=== PATIENT | male | born 1990 | race Caucasian/White ===

== ENCOUNTER 2017-01-04 19:09 | Emergency (ER) | payer OTHER ==
[~2017-01-04] VITALS: Ht 172.7 cm; Wt 60.6 kg
[~2017-01-04 19:09] MED LIST: AUGMENTIN875 MG PO; CIPRODEX OTIC7.5 ML RIGHT EAR; HYQVIA SC; IBUPROFEN800 MG PO; IMODIUM A-D2 M1 PO; LEVAQUIN750 MG PO; NOHOMEMEDS; PEPTO BISMOL240 ML PO; PERCOCET 5/31 TABLET PO; XANAX0.5 MG PO
[2017-01-04 22:16] LABS: BASOPHIL COUNT 0.1 K/uL (0-0.1); EOSINOPHIL (%) 0.1 % (0-5); HEMATOCRIT 42.1 % (38.0-50.0); IMMATURE GRANULOCYTE (%) 0.3 % (0.0-0.7); IMMATURE GRANULOCYTE COUNT 0.6 K/uL; LYMPHOCYTE COUNT 2.3 K/uL (1.0-2.8); MCH 26.3 PG (29.0-34.0); MCHC 34.7 G/DL (30.0-36.0); MCV 75.7 FL (86-99); MEAN PLAT.VOLUME 9.9 uM^3 (9.0-12.4); MONOCYTE (%) 6.5 % (3-12); MONOCYTE COUNT 1.3 K/uL (0-0.8); PLATELET COUNT 289 K/uL (156-360); RBC DIS.WIDTH-CV 13.5 % (11.8-14.6); RED BLOOD COUNT 5.56 M/uL (4.00-5.50); WHITE BLOOD COUNT 19.7 K/uL (4.1-10.2)
[2017-01-04 22:27] LABS: CHLORIDE 103 mEq/L (99-109); POTASSIUM 3.9 mEq/L (3.7-5.4); SODIUM 139 mEq/L (136-147)
[2017-01-04 22:30] LABS: GLUCOSE 108 mg/dL (70-99)
[2017-01-04 22:31] LABS: ANION GAP 13 MEQ/L (2-14)
[2017-01-04 22:32] LABS: TOTAL BILIRUBIN 0.8 mg/dL (0.0-1.0)
[2017-01-04 22:33] LABS: ALKALINE PHOSPHATASE 97 IU/L (3-129); GFR ESTIMATE (CALCULATED) > 59 mL/min/
[2017-01-04 22:34] LABS: UREA NITROGEN (BUN) 6 mg/dL (9-23)
[2017-01-04 22:54] LABS: INTERNAL CONTROL VALID? YES; MONOSPOT (MONONUCLEOSIS SEROL) NEGATIVE
[2017-01-05] MEDS ORDERED: NORCO 5/3251 TABLET PO (00:15)
[2017-01-05 00:34] VITALS: BP 125/81
== END 2017-01-05 00:34 | disposition home or self-care (01) ==
LOC: EME 19:09 → RME 19:09
PROVIDERS: Physician Assistant
DX: R59.1 Generalized enlarged lymph nodes (principal); F17.200 Nicotine dependence, unspecified, uncomplicated
CPT/HCPCS: 70491; 71020; 80053; 84443; 85025; 86308; 87651 90; 99281; 99285; J1170; J2405; J3010; J7030; J7050

== ENCOUNTER 2017-01-17 07:14 | Day surgery (SDC) | payer OTHER ==
[~2017-01-17] VITALS: Ht 172.7 cm; Wt 61.0 kg
[~2017-01-17 07:14] MED LIST changes: +NORCO 5/3251 TABLET PO
[2017-01-17 08:08] VITALS: BP 119/73
[2017-01-17 08:19] LABS: BASOPHIL COUNT 0.1 K/uL (0-0.1); EOSINOPHIL (%) 1.5 % (0-5); EOSINOPHIL COUNT 0.2 K/uL (0-0.3); HEMATOCRIT 41.2 % (38.0-50.0); IMMATURE GRANULOCYTE (%) 0.3 % (0.0-0.7); LYMPHOCYTE COUNT 2.5 K/uL (1.0-2.8); MCH 26.6 PG (29.0-34.0); MCHC 33.7 G/DL (30.0-36.0); MCV 78.9 FL (86-99); MONOCYTE (%) 4.7 % (3-12); MONOCYTE COUNT 0.7 K/uL (0-0.8); NEUTROPHIL (%) 76.2 % (45-76); NEUTROPHIL COUNT 11.4 K/uL (1.8-6.4); RBC DIS.WIDTH-CV 13.2 % (11.8-14.6); RED BLOOD COUNT 5.22 M/uL (4.00-5.50)
[2017-01-17 08:33] LABS: MEAN PLAT.VOLUME 9.6 uM^3 (9.0-12.4)
[2017-01-17 08:38] LABS: INTER. NORMALIZED RATIO 1.1; PROTHROMBIN TIME 10.9 (9.2-11.2)
[2017-01-17 08:44] LABS: PLATELET COUNT 391 K/uL (156-360)
[2017-01-17 09:05] LABS: METH RESISTANT S AUREUS PCR NEGATIVE (NEGATIVE); PROBE CHECK PASS; SPECIMEN PROCESSING CONTROL PASS
[2017-01-17] MEDS ORDERED: NORCO 5/3251 TABLET PO (11:10)
[2017-01-17] MEDS ORDERED: COLACE100 MG PO (11:10)
[2017-01-17 11:45] VITALS: BP 131/93
[2017-01-17 12:23] VITALS: BP 129/82
[2017-01-18 15:13] LABS: Flow Number of Markers 22 (()); Flow Spec Viability 79 % (()); Flow Specimen Type LYMPH NODE (())
== END 2017-01-17 12:25 | disposition home or self-care (01) ==
LOC: SDC 07:14
PROVIDERS: Thoracic Surgery (Cardiothoracic Vascular Surgery)
PROC: 07B20ZX Excision of Left Neck Lymphatic, Open Approach, Diagnostic (ICD-10-PCS; principal; 2017-01-17)
DX: R59.0 Localized enlarged lymph nodes (principal); D83.9 Common variable immunodeficiency, unspecified; D86.9 Sarcoidosis, unspecified; Z80.0 Family history of malignant neoplasm of digestive organs; F17.200 Nicotine dependence, unspecified, uncomplicated
CPT/HCPCS: 85025; 85610; 87641; 88184 90; 88185 90; 88189 90; 88305; J0690; J1170; J3010

== ENCOUNTER 2017-08-14 15:18 | Emergency (ER) | payer OTHER ==
[~2017-08-14] VITALS: Ht 172.7 cm; Wt 55.6 kg
[~2017-08-14 15:18] MED LIST changes: +COLACE100 MG PO
[2017-08-14 16:59] LABS: HEMATOCRIT 40.9 % (38.0-50.0); MCH 24.3 PG (29.0-34.0); MCHC 32.5 G/DL (30.0-36.0); MCV 74.6 FL (86-99); MEAN PLAT.VOLUME 9.1 uM^3 (9.0-12.4); PLATELET COUNT 378 K/uL (156-360); RBC DIS.WIDTH-CV 13.4 % (11.8-14.6); RBC DIS.WIDTH-SD 35.8 % (39-53); RED BLOOD COUNT 5.48 M/uL (4.00-5.50); WHITE BLOOD COUNT 14.5 K/uL (4.1-10.2)
[2017-08-14 17:06] LABS: CHLORIDE 107 mEq/L (99-109); POTASSIUM 3.6 mEq/L (3.7-5.4); SODIUM 144 mEq/L (136-147)
[2017-08-14 17:07] LABS: GLUCOSE 97 mg/dL (70-99)
[2017-08-14 17:09] LABS: ANION GAP 10 MEQ/L (2-14)
[2017-08-14 17:11] LABS: GFR ESTIMATE (CALCULATED) > 59 mL/min/
[2017-08-14 17:12] LABS: UREA NITROGEN (BUN) 5 mg/dL (9-23)
[2017-08-14 17:16] LABS: TROP-I INTERPRETATION NEGATIVE; TROPONIN-I < 0.01 ng/mL (0.0-0.30)
[2017-08-14 18:00] VITALS: BP 143/76
[2017-08-14] MEDS ORDERED: ATARAX,VISTARIL50 MG PO (18:06)
== END 2017-08-14 18:09 | disposition home or self-care (01) ==
LOC: EME 15:18
DX: F41.9 Anxiety disorder, unspecified (principal); D86.9 Sarcoidosis, unspecified; D84.9 Immunodeficiency, unspecified; Z72.0 Tobacco use
CPT/HCPCS: 71020; 80048; 84484; 85027; 93005; 99281; 99285; Q0177

== ENCOUNTER 2018-01-28 10:53 | Emergency (ER) | payer OTHER ==
[~2018-01-28] VITALS: Ht 172.7 cm; Wt 54.3 kg
[~2018-01-28 10:53] MED LIST changes: +ATARAX,VISTARIL50 MG PO
[2018-01-28 11:59] LABS: ALBUMIN 3.4 g/dL (3.2-4.8); CHLORIDE 104 mEq/L (99-109); POTASSIUM 4.3 mEq/L (3.7-5.4); SODIUM 140 mEq/L (136-147)
[2018-01-28 12:00] LABS: BASOPHIL (%) 0.3 % (0-1); BASOPHIL COUNT 0.1 K/uL (0-0.1); EOSINOPHIL (%) 0.9 % (0-5); EOSINOPHIL COUNT 0.2 K/uL (0-0.3); HEMOGLOBIN 11.1 G/DL (12.5-16.6); IMMATURE GRANULOCYTE (%) 0.8 % (0.0-0.7); LYMPHOCYTE (%) 9.2 % (15-42); LYMPHOCYTE COUNT 2.4 K/uL (1.0-2.8); MCH 21.5 PG (29.0-34.0); MCHC 31.7 G/DL (30.0-36.0); MCV 67.8 FL (86-99); MONOCYTE COUNT 1.3 K/uL (0-0.8); NEUTROPHIL (%) 83.8 % (45-76); NEUTROPHIL COUNT 21.4 K/uL (1.8-6.4); PLATELET COUNT 427 K/uL (156-360); RBC DIS.WIDTH-CV 15.1 % (11.8-14.6); RBC DIS.WIDTH-SD 36.6 % (39-53); RED BLOOD COUNT 5.16 M/uL (4.00-5.50); WHITE BLOOD COUNT 25.5 K/uL (4.1-10.2)
[2018-01-28 12:01] LABS: GLUCOSE 104 mg/dL (70-99); TOTAL PROTEIN 5.6 g/dL (6.4-8.3)
[2018-01-28 12:03] LABS: TOTAL BILIRUBIN 0.2 mg/dL (0.0-1.0)
[2018-01-28 12:05] LABS: ALKALINE PHOSPHATASE 134 IU/L (3-129); CREATININE 0.6 mg/dL (0.6-1.3); GFR ESTIMATE (CALCULATED) > 59 mL/min/ (58.99-99999)
[2018-01-28 12:06] LABS: AST (GOT) 8 IU/L (2-34); UREA NITROGEN (BUN) 8 mg/dL (9-23)
[2018-01-28 12:08] LABS: ALT (GPT) 7 IU/L (3-49)
[2018-01-28] MEDS ORDERED: ULTRAM50 MG PO (14:21)
[2018-01-28] MEDS ORDERED: VENTOLIN HFA18 GM IH (14:37)
[2018-01-28 14:40] VITALS: BP 99/87
== END 2018-01-28 14:44 | disposition left against medical advice (07) ==
LOC: EME 10:53
PROVIDERS: Emergency Medicine
DX: R59.1 Generalized enlarged lymph nodes (principal); D86.9 Sarcoidosis, unspecified; F41.9 Anxiety disorder, unspecified; F32.9 Major depressive disorder, single episode, unspecified; Z72.0 Tobacco use
CPT/HCPCS: 70491; 71260; 74177; 80053; 85025; 99281; 99285; J3010; J7030

== ENCOUNTER 2018-01-31 10:27 | Inpatient (IN) | payer OTHER ==
[~2018-01-31] VITALS: Ht 172.7 cm; Wt 50.9 kg
[~2018-01-31 10:27] MED LIST changes: +ULTRAM50 MG PO; +VENTOLIN HFA18 GM IH
[2018-01-31 11:48] LABS: HEMATOCRIT 37.1 % (38.0-50.0); HEMOGLOBIN 11.6 G/DL (12.5-16.6); MCH 21.4 PG (29.0-34.0); MCHC 31.3 G/DL (30.0-36.0); MCV 68.5 FL (86-99); PLATELET COUNT 476 K/uL (156-360); RBC DIS.WIDTH-CV 15.1 % (11.8-14.6); RED BLOOD COUNT 5.42 M/uL (4.00-5.50); WHITE BLOOD COUNT 16.1 K/uL (4.1-10.2)
[2018-01-31 12:14] LABS: CHLORIDE 102 mEq/L (99-109); POTASSIUM 4.5 mEq/L (3.7-5.4); SODIUM 141 mEq/L (136-147)
[2018-01-31 12:16] LABS: GLUCOSE 99 mg/dL (70-99)
[2018-01-31 12:20] LABS: CREATININE 0.6 mg/dL (0.6-1.3); GFR ESTIMATE (CALCULATED) > 59 mL/min/ (58.99-99999)
[2018-01-31 12:21] LABS: UREA NITROGEN (BUN) 7 mg/dL (9-23)
[2018-01-31] MEDS ORDERED: AZITHROMYCIN250 MG PO (14:13)
[2018-01-31] MEDS ORDERED: TURMERIC 500 M1 EACH PO (14:13)
[2018-01-31 15:27] VITALS: BP 114/70
[2018-01-31 19:31] VITALS: BP 109/65
[2018-01-31 23:39] VITALS: BP 110/68
[2018-02-01 03:18] VITALS: BP 102/58
[2018-02-01 06:26] LABS: HEMATOCRIT 36.6 % (38.0-50.0); HEMOGLOBIN 11.1 G/DL (12.5-16.6); MCH 21.1 PG (29.0-34.0); MCHC 30.3 G/DL (30.0-36.0); MCV 69.4 FL (86-99); PLATELET COUNT 440 K/uL (156-360); RBC DIS.WIDTH-CV 15.5 % (11.8-14.6); RED BLOOD COUNT 5.27 M/uL (4.00-5.50); WHITE BLOOD COUNT 11.9 K/uL (4.1-10.2)
[2018-02-01 06:36] LABS: CHLORIDE 105 MEQ/L (99-109); CREATININE 0.6 MG/DL (0.6-1.3); GFR ESTIMATE (CALCULATED) > 59 mL/min/ (58.99-99999); GLUCOSE 104 mg/dL (70-99); POTASSIUM 4.6 MEQ/L (3.7-5.4); SODIUM 143 MEQ/L (136-147); UREA NITROGEN (BUN) 8 mg/dL (9-23)
[2018-02-01 08:09] VITALS: BP 120/68
[2018-02-01 09:31] LABS: A/G RATIO 1.9 (1.1-1.8); ALBUMIN 3.8 G/DL (3.4-5.0); TOTAL PROTEIN 5.8 G/DL (6.4-8.2)
[2018-02-01 09:33] LABS: ALBUMIN 3.4 G/DL (3.2-4.8); ALKALINE PHOSPHATASE 106 IU/L (3-129); ALT (GPT) 7 IU/L (3-49); AST (GOT) 8 IU/L (2-34); TOTAL PROTEIN 5.3 G/DL (6.4-8.3)
[2018-02-01 09:34] LABS: TOTAL BILIRUBIN 0.2 MG/DL (0.0-1.0)
[2018-02-01 10:55] LABS: ANTI-HEPATITIS B CORE (TOTAL) Nonreactive; HEPATITIS B SURFACE ANTIGEN Nonreactive
[2018-02-01 10:56] LABS: HEPATITIS B SURFACE ANTIBODY Nonreactive; HIV-1/2 AB/AG COMBO Nonreactive
[2018-02-01 11:48] LABS: TREPONEMA ANTIBODY NEGATIVE (NEGATIVE)
[2018-02-01 11:54] VITALS: BP 111/66
[2018-02-01 13:11] LABS: LYME DISEASE SEROLOGY SCREEN NEGATIVE (NEGATIVE)
[2018-02-01 16:14] VITALS: BP 122/71
[2018-02-01 19:44] VITALS: BP 106/69
[2018-02-01 19:44] LABS: IMMUNOGLOBULIN G < 75 MG/DL (650-1600); IMMUNOGLOBULIN M < 20 MG/DL (50-300)
[2018-02-01 23:00] VITALS: BP 101/70
[2018-02-02 06:47] LABS: RED BLOOD COUNT 5.43 M/uL (4.00-5.50); WHITE BLOOD COUNT 11.3 K/uL (4.1-10.2)
[2018-02-02 06:48] LABS: HEMATOCRIT 37.4 % (38.0-50.0); HEMOGLOBIN 11.2 G/DL (12.5-16.6); MCH 20.6 PG (29.0-34.0); MCHC 29.9 G/DL (30.0-36.0); MCV 68.9 FL (86-99); PLATELET COUNT 426 K/uL (156-360); RBC DIS.WIDTH-CV 15.1 % (11.8-14.6); RBC DIS.WIDTH-SD 37.2 % (39-53)
[2018-02-02 07:15] LABS: CHLORIDE 102 MEQ/L (99-109); CREATININE 0.5 MG/DL (0.6-1.3); GFR ESTIMATE (CALCULATED) > 59 mL/min/ (58.99-99999); GLUCOSE 89 mg/dL (70-99); SODIUM 143 MEQ/L (136-147); UREA NITROGEN (BUN) 9 mg/dL (9-23)
[2018-02-02 07:56] LABS: FERRITIN 99 NG/ML (22-322)
[2018-02-02 08:06] VITALS: BP 109/62
[2018-02-02] MEDS ORDERED: BACTRIM,SEPT1 TABLET PO (08:19)
[2018-02-02] MEDS ORDERED: AZITHROMYCIN500 M1 PO (08:20)
[2018-02-02 10:55] LABS: HEPATITIS C ANTIBODY Nonreactive
[2018-02-02 17:53] LABS: TOXOPLASMA IgG+ <7.20 IU/mL (<7.20)
[2018-02-02 19:41] LABS: TOXOPLASMA IgM (ACUTE ONLY)+ <8.00 AU/mL (<8.00)
[2018-02-04 11:25] LABS: ALBUMIN 3.05 G/DL (3.6-4.9); ALPHA-2 GLOBULIN 1.31 G/DL (0.45-0.85); BETA-GLOBULIN 0.68 G/DL (0.65-1.15); GAMMA-GLOBULIN 0.06 G/DL (0.60-1.35)
[2018-02-05 00:25] LABS: QGTB-NIL 0.08 IU/mL (()); QUANTIFERON TB GOLD NEGATIVE (Negative)
== END 2018-02-02 11:49 | disposition home or self-care (01) | DRG 815 ==
LOC: EME 10:27 → EDOF 13:59 → 5EAST 13:59 → ENRESERV 14:00 → 5EAST 14:43
PROVIDERS: Internal Medicine; Internal Medicine Medical Oncology; Physician Assistant
DX: R59.0 Localized enlarged lymph nodes (principal); D83.9 Common variable immunodeficiency, unspecified; I87.1 Compression of vein; J40 Bronchitis, not specified as acute or chronic; M54.2 Cervicalgia; J04.0 Acute laryngitis; R63.4 Abnormal weight loss; R63.3 Feeding difficulties; Z68.1 Body mass index [BMI] 19.9 or less, adult; D86.9 Sarcoidosis, unspecified; F41.1 Generalized anxiety disorder; F32.9 Major depressive disorder, single episode, unspecified; F17.200 Nicotine dependence, unspecified, uncomplicated; Z87.01 Personal history of pneumonia (recurrent)
CPT/HCPCS: 36415; 71046; 80048; 80053; 80076; 82232; 82728; 82784; 82784 90; 82787 90; 83615; 83883 90; 84165; 84166; 84550; 85025; 85027; 86480 90; 86611 90; 86618; 86704; 86706; 86774 90; 86777 90; 86778 90; 86780; 86803; 87340; 87389; 99281; 99284; J2270